=== PATIENT | male | born 1970 | race Caucasian/White ===

== ENCOUNTER 2024-08-09 06:37 | Day surgery (SDC) | payer OTHER, SELFPAY ==
[2024-06-07 13:21] VITALS: BMI 33.1
[2024-07-25 08:44] VITALS: BMI 31.2
--- NOTE | 2024-08-09 06:41 | WPDANESEPPF ---
Anes - Initial Pre Proc Eval Procedure: Operation Date: 08/09/24 09:00 Proposed Procedures p Diagnostic Colonoscopy - Garfield Qureshi MD Date/Time: 08/09/24 06:41 Surgeon: Garfield Qureshi MD Pre Op Diagnosis: Family HX of Colon Cancer Patient Data Age: 53 Gender: M Height: 1.83 m Weight: 104.5 kg Allergies Allergy/AdvReac Type Severity Reaction Status Date / Time No Known Allergies Allergy Unknown Verified 08/09/24 07:48 Home Medications Medication Instructions Recorded Confirmed Type atorvastatin 20 mg tablet 20 mg PO DAILY 07/25/24 08/09/24 History Patient hx anesthesia problems: none Family hx anesthesia problems: none Results Review: All pre-operative results and documents have been reviewed as part of the pre-operative evaluation. [facility] Past Medical History Medical History (Updated 08/09/24 @ 06:41 by Quinton Malik DO) Hyperlipidemia Social History Social History Smoking status: Never smoker Alcohol intake: current Drinks per week: 8 Alcohol use details: beer Substance use type: does not use Living arrangements: with family Spiritual care concerns: No Anes - Eval Final PreProcedure Day of Procedure 08/09/24 06:41 Patient weight: obese Heart: regular rate and rhythm Lungs: clear to auscultation Airway: Mallampati scale class II Neurological: alert and oriented Last oral intake: >/= 8 hours ASA classification: II Emergent: no Anesthetic plan: proceed Anesthesia type and monitoring: general GIVS and standard monitoring Results Review: All pre-operative results and documents have been reviewed as part of the pre-operative evaluation. Informed Consent: The patient's anesthetic plan and its attendant risks and benefits were discussed with the patient/family/POA. Questions were solicited and answers provided to the satisfaction of the patient/family/POA.
[2024-08-09 07:46] VITALS: BP 140/83; PULSE 73; RESP 18; TEMP 36.6; O2SAT 97; BMI 31.3
[2024-08-09] MEDS: LACTATED RINGERS 1,000 ML 150 ML IV CONT (08:01)
--- NOTE | 2024-08-09 08:21 | PM.HPGS ---
History of Present Illness History of Present Illness Consent: Risks, benefits, and alternatives have been discussed and questions answered. Patient agrees to proceed with procedure. Chief complaint: Family HX of Colon Cancer Narrative: Ugo Mar is a 53 year old male presents for screening colonoscopy. Patient's family history is significant that his mother had colon cancer. Patient's current weight appetite is are normal. Patient denies abdominal pain. He has had no bleeding. Family history is significant that mother had colon cancer. Review of Systems Review of Systems: All systems reviewed & are unremarkable except as noted in HPI and below PMFSH Past Medical History Medical History (Updated 08/09/24 @ 08:22 by Garfield Qureshi MD) Hyperlipidemia Social History Social History Smoking status: Never smoker Alcohol intake: current Drinks per week: 8 Alcohol use details: beer Substance use type: does not use Living arrangements: with family Spiritual care concerns: No Meds Home Medications and Allergies Home Medications Medication Instructions Recorded Confirmed Type atorvastatin 20 mg tablet 20 mg PO DAILY 07/25/24 08/09/24 History Allergies Allergy/AdvReac Type Severity Reaction Status Date / Time No Known Allergies Allergy Unknown Verified 08/09/24 07:48 Vital Signs Vital Signs - 24 hr 08/09/24 07:46 Temperature 97.9 F Pulse Rate 73 Respiratory Rate 18 Blood Pressure 140/83 Pulse Oximetry 97 Oxygen Delivery Room Air Exam Narrative: Physical exam reveals patient to be alert. Vital signs stable. HEENT is exam is unremarkable. Patient is anicteric. Lungs are clear to auscultation and to percussion is without murmur or extra sounds. Abdomen bowel sounds are present soft nontender with no organomegaly. Digital external rectal exam normal. Assessment and Plan Assessment and plan (1) Family history of colon cancer in mother: Code(s): Z80.0 - Family history of malignant neoplasm of digestive organs Status: Acute Assessment and Plan: Patient's mother had colon cancer. Suggest follow-up colonoscopy at 5 year intervals.
[2024-08-09 08:41] VITALS: BP 114/68; PULSE 74; RESP 16; O2SAT 99
[2024-08-09 08:51] VITALS: BP 131/79; PULSE 66; RESP 16; O2SAT 98
[2024-08-09 09:01] VITALS: BP 134/95; PULSE 76; RESP 16; O2SAT 97
--- NOTE | 2024-08-09 12:30 | WPDANESPN ---
Anes - Prog Note Post-Op Date/Time: 08/09/24 12:30 Cardiovascular status: normal Respiratory status: normal Airway patency: baseline Mental status: baseline Post-Op hydration status: normal Vital Signs: Last Vital Signs Temp 36.6 C 08/09/24 07:46 Pulse 76 08/09/24 09:01 Resp 16 08/09/24 09:01 BP 134/95 H 08/09/24 09:01 Pulse Ox 97 08/09/24 09:01 O2 Del Method Room Air 08/09/24 09:01 Pain Score (VAS): 0 I/O: Intake & Output 08/08/24 08/09/24 08/09/24 23:59 07:59 15:59 Intake Total 100 Balance 100 Post-procedural complaints: none Patient Feedback: Patient satisfied with anesthetic care. Other Findings: Patient vital signs back to baseline. Patient denies nausea and vomiting. Patient's pain under control. Patient OK for discharge.
== END 2024-08-09 09:10 | disposition home or self-care (01) ==
PROVIDERS: PCP Physician Assistant; Visit Provider Internal Medicine Gastroenterology
PROC: 0DJD8ZZ Inspection of Lower Intestinal Tract, Via Natural or Artificial Opening Endoscopic (ICD-10-PCS; CPT 45378; principal; 2024-08-09 09:00)
DX: Z80.0 Family history of malignant neoplasm of digestive organs (principal); D12.3 Benign neoplasm of transverse colon; K57.30 Diverticulosis of large intestine without perforation or abscess without bleeding; K64.8 Other hemorrhoids
CPT/HCPCS: 45385

== ENCOUNTER 2024-08-09 07:00 | Outpatient (NON) | payer OTHER, SELFPAY | END 2024-08-09 07:01 | disposition home or self-care (01) | LOC: ANHLAB 08-10 10:39 | PROVIDERS: PCP Physician Assistant; Visit Provider Internal Medicine Gastroenterology | DX: K63.5 Polyp of colon (principal) | CPT/HCPCS: 88305 ==